=== PATIENT | female | born 1980 | race Caucasian/White ===

== ENCOUNTER 2024-05-22 16:54 | Emergency (ER) | payer BC, MEDICAID ==
[~2024-05-22] VITALS: Ht 165.1 cm; Wt 64.4 kg
[2024-05-22 17:24] VITALS: BP_SYST 126; PULSE 81; RESP 18; TEMP 98.3; O2SAT 99
[2024-05-22] MEDS: KETOROLAC TROMETHAMINE 60 MG/2 ML VIAL IM ONE (18:11)
[2024-05-22] MEDS: DIAZEPAM 5 MG TABLET (VALIUM) PO ONE (18:12)
[2024-05-22] MEDS ORDERED: DICL50TA9 PO (19:21)
[2024-05-22] MEDS ORDERED: DICL20GE TP (19:21)
[2024-05-22] MEDS ORDERED: LIDO1ADH6 TP (19:21)
[2024-05-22 19:32] VITALS: BP_SYST 126; PULSE 81; RESP 18; TEMP 98.3; O2SAT 99
[2024-05-22] MEDS ORDERED: LIDOCAINE PATCH 5% 1 EA TP ONE (19:33)
[2024-05-22] MEDS: LIDOCAINE PATCH 5% 1 EA TP ONE (19:34)
== END 2024-05-22 19:32 | disposition home or self-care (01) ==
LOC: SED 16:54
DX: M75.31 Calcific tendinitis of right shoulder (principal)
CPT/HCPCS: 99283; 73030; 81025; 96372; J1885